=== PATIENT | female | born 1995 | race African-American/Black ===

== ENCOUNTER 2020-02-06 15:24 | Emergency (ER) | payer OTHER ==
[~2020-02-06] VITALS: Ht 160 cm; Wt 56.7 kg
[~2020-02-06 15:24] MED LIST: IBUPROFEN 600600 M1 PO; NAPROSYN500 MG PO; NOHOMEMEDICATIONS
[2020-02-06 15:46] LABS: URINE BILIRUBIN NEGATIVE (Negative); URINE BLOOD NEGATIVE (Negative); URINE CLARITY CLEAR; URINE COLOR YELLOW; URINE GLUCOSE-RANDOM* NEGATIVE (Negative); URINE KETONES 2+ (Negative); URINE LEUKOCYTES-REFLEX TRACE (Negative); URINE NITRITE-REFLEX NEGATIVE (Negative); URINE PROTEIN (DIPSTICK) NEGATIVE (Negative); URINE SPECIFIC GRAVITY 1.025 (1.005-1.035); URINE UROBILINOGEN 0.2 E.U./dl (0.2-1.0)
[2020-02-06 15:49] VITALS: BP 104/50
== END 2020-02-06 16:56 | disposition left against medical advice (07) ==
LOC: ER 15:24
PROVIDERS: Physician Assistant
DX: O21.9 Vomiting of pregnancy, unspecified (principal); O26.891 Other specified pregnancy related conditions, first trimester; R10.30 Lower abdominal pain, unspecified; Z3A.01 Less than 8 weeks gestation of pregnancy

== ENCOUNTER 2020-08-19 15:08 | Emergency (ER) | payer OTHER ==
[~2020-08-19] VITALS: Ht 160 cm; Wt 68.0 kg
[2020-08-19] MEDS ORDERED: TYLENOL325 M1 PO (17:06)
[2020-08-19] MEDS ORDERED: ANUSOL-HC30 GM TOP (17:06)
[2020-08-19] MEDS ORDERED: ANUSOL-HC25 MG RECTAL (17:06)
[2020-08-19 18:09] VITALS: BP 100/67
== END 2020-08-19 17:58 | disposition home or self-care (01) ==
LOC: ER 15:08
DX: O26.893 Other specified pregnancy related conditions, third trimester (principal); K64.9 Unspecified hemorrhoids; O47.9 False labor, unspecified; Z3A.00 Weeks of gestation of pregnancy not specified

== ENCOUNTER 2020-11-23 12:53 | Emergency (ER) | payer OTHER ==
[~2020-11-23] VITALS: Ht 157.5 cm; Wt 63.5 kg
[~2020-11-23 12:53] MED LIST changes: +ANUSOL-HC25 MG RECTAL; +ANUSOL-HC30 GM TOP; +TYLENOL325 M1 PO
[2020-11-23 13:16] LABS: URINE BILIRUBIN NEGATIVE (Negative); URINE BLOOD NEGATIVE (Negative); URINE CLARITY HAZY; URINE COLOR YELLOW; URINE GLUCOSE-RANDOM* NEGATIVE (Negative); URINE KETONES 3+ (Negative); URINE LEUKOCYTES-REFLEX 1+ (Negative); URINE NITRITE-REFLEX NEGATIVE (Negative); URINE PROTEIN (DIPSTICK) 1+ (Negative); URINE SPECIFIC GRAVITY >= 1.030 (1.005-1.035)
[2020-11-23 13:27] LABS: URINE REDUCING SUBSTANCE NEGATIVE
[2020-11-23 13:29] LABS: CASTS None Seen /LPF (None Seen); MUCUS >6 Heavy strn/LPF (None Seen); SQUAMOUS >10 Many /LPF (0-3)
[2020-11-23 13:31] LABS: BACTERIA-REFLEX >30 Many /HPF (None Seen); CRYSTALS None Seen /LPF (None Seen); URINE RBC None Seen /HPF (NONE SEEN); URINE WBC-REFLEX 6-15 Few /HPF (0-5)
[2020-11-23 14:30] LABS: ABSOLUTE NEUTROPHILS 4.7 thou/uL (1.4-8.2); BASOPHILS 0.3 % (0.0-2.0); EOSINOPHILS 0.1 % (0.0-3.0); HEMOGLOBIN 13.9 gm/dL (12.0-15.0); LYMPHOCYTES 10.2 % (24.0-44.0); MCH 32.6 pg (26.0-34.0); MCHC 33.2 g/dL (28.0-37.0); MCV 98.1 fL (80.0-100.0); MONOCYTES 6.1 % (1.0-8.0); POLYS 83.3 % (36.0-66.0); RBC 4.28 mil/uL (4.20-5.00); RDW 13.6 % (10.5-14.5); WBC 5.6 thou/uL (4.0-11.0)
[2020-11-23 14:37] LABS: CALCIUM 9.5 mg/dL (8.5-10.1); CREATININE 0.9 mg/dL (0.6-1.0); POTASSIUM 3.8 mmol/L (3.5-5.1)
[2020-11-23 14:43] LABS: ALBUMIN 4.5 g/dL (3.4-5.0); TOTAL BILIRUBIN 0.5 mg/dL (0.2-1.0)
[2020-11-23 14:50] LABS: PLATELET COUNT 243 thou/uL (150-400)
[2020-11-23 14:51] LABS: LARGE PLATELETS RARE
[2020-11-23] MEDS ORDERED: ONDANSETRON HCL4 M2 PO (16:03)
[2020-11-23] MEDS ORDERED: MOBIC7.5 MG PO (16:03)
[2020-11-23 17:56] VITALS: BP 105/55
== END 2020-11-23 17:56 | disposition home or self-care (01) ==
LOC: ER 12:53
PROVIDERS: Nurse Practitioner Family
DX: N83.201 Unspecified ovarian cyst, right side (principal); N39.0 Urinary tract infection, site not specified; R11.2 Nausea with vomiting, unspecified; Z79.899 Other long term (current) drug therapy

== ENCOUNTER 2021-01-13 23:50 | Emergency (ER) | payer OTHER ==
[~2021-01-13] VITALS: Ht 160 cm; Wt 59.0 kg
[~2021-01-13 23:50] MED LIST changes: +MOBIC7.5 MG PO; +ONDANSETRON HCL4 M2 PO
[2021-01-14] MEDS ORDERED: CEPHALEXIN 250250 M1 PO ×2 (02:24)
[2021-01-14 02:48] VITALS: BP 115/65
== END 2021-01-14 02:49 | disposition home or self-care (01) ==
LOC: ER 23:50
DX: S91.311A Laceration without foreign body, right foot, initial encounter (principal); F32.9 Major depressive disorder, single episode, unspecified; Z72.89 Other problems related to lifestyle; Z90.89 Acquired absence of other organs; X58.XXXA Exposure to other specified factors, initial encounter; Y93.89 Activity, other specified; Y92.89 Other specified places as the place of occurrence of the external cause; Y99.8 Other external cause status

== ENCOUNTER 2021-01-24 11:38 | Emergency (ER) | payer OTHER ==
[~2021-01-24] VITALS: Ht 157.5 cm; Wt 56.7 kg
[~2021-01-24 11:38] MED LIST changes: +CEPHALEXIN 250250 M1 PO
[2021-01-24 11:50] VITALS: BP 106/33
== END 2021-01-24 12:40 | disposition home or self-care (01) ==
LOC: ER 11:38
DX: S91.311D Laceration without foreign body, right foot, subsequent encounter (principal); F32.9 Major depressive disorder, single episode, unspecified; Z48.02 Encounter for removal of sutures; Z90.89 Acquired absence of other organs